=== PATIENT | female | born 1995 | race Caucasian/White ===

== ENCOUNTER 2019-03-28 01:40 | Day surgery (SDC) | payer BC, SELFPAY ==
[2019-03-20 15:26] VITALS: BMI 36.6
--- NOTE | 2019-03-27 15:40 | HP_ITS ---
DATE OF SERVICE: 03/28/2019 HISTORY: She has nasal obstruction and a CAT scan showed adenoid hypertrophy. PHYSICAL EXAMINATION: CHEST: Clear. HEART: Without murmurs. ABDOMEN: Soft. EXTREMITIES: Negative. REVIEW OF SYSTEMS: Otherwise unremarkable. IMPRESSION: Adenoid hypertrophy, adenoidectomy. D I MT: Archana
--- NOTE | 2019-03-27 17:16 | P.PNAN_ITS ---
Anes - Eval Pre Procedure Procedure: Operation Date: 03/28/19 09:00 Proposed Procedures p Adenoidectomy - Damaso Pugh MD Date/Time: 03/27/19 17:16 Pre Op Diagnosis: Adenoid Hypertrophy Patient Data Age: 23 Gender: F Height: 5 ft 5 in Weight: 99.79 kg Allergies Allergy/AdvReac Type Severity Reaction Status Date / Time No Known Allergies Allergy Unverified 07/18/16 09:31 Home Medications Medication Instructions Recorded Confirmed Type norethindrone-e.estradiol-iron [Lo 1 tablet PO DAILY 03/20/19 03/20/19 History Loestrin Fe] Patient hx anesthesia problems: none Family hx anesthesia problems: none PMFSH Past Medical History Medical History (Updated 03/27/19 @ 17:19 by Marcial Umana CRNA) Adenoid hypertrophy Anxiety Eczema Surgical History Surgical History (Updated 03/27/19 @ 17:19 by Marcial Umana CRNA) H/O abdominal surgery Status post myringotomy with tube placement of both ears [place] teeth extracted Exam Day of Procedure 03/27/19 17:16
[2019-03-28] VITALS (9 sets, daily range): BP systolic 102–124; BP diastolic 63–98; PULSE 70–110; RESP 14–26; TEMP 36.7–36.9; O2SAT 94–100
--- NOTE | 2019-03-28 05:28 | WPDHPUPDATE1 ---
History and Physical Update Update Date/Time: 03/28/19 05:28 History and Physical has been reviewed, including an updated exam of the patient. There are NO changes in the patient's condition. Risks, benefits, and alternatives have been discussed and questions answered. Patient agrees to proceed with procedure.
[2019-03-28] MEDS: LACTATED RINGERS 1,000 ML 30 ML IV CONT ×2 (07:40→09:31)
--- NOTE | 2019-03-28 07:47 | P.PNAN_ITS ---
Anes - Eval Final PreProcedure Day of Procedure 03/28/19 07:47 Patient weight: obese Heart: regular rate and rhythm Lungs: clear to auscultation Airway: Mallampati scale class III Neurological: alert and oriented Last oral intake: >/= 8 hours ASA classification: II Emergent: no Anesthetic plan: proceed Anesthesia type and monitoring: general ETT and standard monitoring Informed Consent: The patient's anesthetic plan and its attendant risks and be nefits were discussed with the patient/family/POA. Questions were solicited and answers provided to the satisfaction of the patient/family/POA.
[2019-03-28] MEDS: OXYMETAZOLINE HCL 0.05% NAS 15 ML BTL (*BKC) 1 SPRAY NASAL (08:41)
--- NOTE | 2019-03-28 08:49 | PM.PROC ---
Procedure Note - Detailed Date of procedure: 03/28/19 Pre-op diagnosis: Adenoid Hypertrophy Procedure performed: Patient was prepped and draped the fascial anesthesia the [place] mouth gag was inserted. Red rubber retraction of the palate laryngeal mirror showed adenoid tissue was difficult to visualize with an adenoid curette they were removed and by scraping the adenoids out present packed with cotton cotton balls impregnated with Afrin patient awakened returned to recovery in good condition Anesthesia: GLMA Surgeon: Damaso Pugh MD Estimated blood loss (mL): 150 Drains: No Packing: No Pathology: yes Complications: No immediate complications Condition: stable
--- NOTE | 2019-03-28 11:03 | SUR.PHASEII ---
1100: Discharge instructions given to patient and significant other. Patient is waiting for her dad to get here. She is all dressed and ready to go so RN has her disconnected from the monitors.
== END 2019-03-28 11:25 | disposition home or self-care (01) ==
PROVIDERS: PCP Nurse Practitioner; Visit Provider Otolaryngology
PROC: (CPT 42831; principal; 2019-03-28 09:00)
DX: J35.2 Hypertrophy of adenoids (principal); L30.9 Dermatitis, unspecified; F41.9 Anxiety disorder, unspecified
CPT/HCPCS: 42831; 88302; A9270; J0131; J0330; J1100; J2250; J2405; J2704; J3010; J7120

== ENCOUNTER 2022-01-19 10:17 | Emergency (ER) | payer BC, SELFPAY ==
--- NOTE | 2022-01-19 10:28 | ED.URI ---
HPI - URI/Sore Throat General Chief Complaint: Upper Respiratory Infection Stated Complaint: sorethroat,fever Time Seen by Provider: 01/19/22 10:28 Source: patient Mode of arrival: ambulatory Limitations: no limitations History of Present Illness HPI Narrative: Shy is a 26-year-old female patient presenting to the clinic today with complaints of sore throat, fever, body aches, and chills. She reports that she has had direct exposure to her sister who tested positive for influenza a last week. States that her symptoms have only been going on for approximately 2-3 days. MD elicited complaint: sore throat and nasal congestion Related Data Home Medications Medication Instructions Recorded Confirmed Mirena See Rx Instructions .Route .COMPLEX 01/19/22 01/19/22 Allergies Allergy/AdvReac Type Severity Reaction Status Date / Time No Known Allergies Allergy Verified 01/19/22 10:37 Review of Systems Review of Systems: Pertinent positives per HPI. Patient denies any rash, headache, visual changes, dizziness, cough, shortness of breath, chest pain, palpitations, nausea, vomiting, diarrhea, constipation, abdominal pain, or any urinary issues. [facility] Past Medical History Medical History Adenoid hypertrophy Anxiety Eczema Surgical History Surgical History H/O abdominal surgery Status post myringotomy with tube placement of both ears [place] teeth extracted Comments At the time of my signature, I reviewed and agree with the nursing past medical, surgical, social, and family history. There is no relevant family history pertinent to the patient complaint. Exam Narrative: General: Well-developed, well nourished, in no apparent distress Head: Normocephalic, atraumatic Eyes: Pupils equally round and reactive to light bilaterally, EOM intact, sclera and conjunctive clear, no discharge, lids normal Ears: TMs intact and clear, ear canals clear, no drainage, grossly hearing normal. Nose: Nares patent, clear nasal discharge, no inflammation, no sinus tenderness. Mouth: Oral pharynx without lesions or masses, good dentition, MMM. oropharynx red with mild tonsillar large Neck: Supple, trachea midline, no enlargement of anterior or posterior cervical nodes, no thyroid masses or goiter palpable. Cardio: Regular rate and rhythm, s1 and s2 normal, no murmur appreciated. Resp: Clear to auscultation bilaterally, no rhonchi, rales, wheezing or rubs Course Course Emergency Course: Portions of this record may have been created with voice recognition software. Level of Care: Express Care Visit Vital Signs Vital signs: Vital signs reviewed MDM - URI/Sore Throat MDM Narrative Medical decision making narrative: At the time of visit patient is resting comfortably on the exam table. Strep screen was obtained Differential Diagnosis Differential diagnosis: Likely upper respiratory infection, otitis media, sinusitis, viral infection, bronchitis, influenza, pharyngitis and other ( COVID) Discharge Plan Discharge Clinical Impression: Strep pharyngitis Patient Disposition: Home, Self-Care Condition: Stable Instructions: Antibiotic Form, Strep Throat (ED) Additional Instructions: Take prescription medications only as prescribed- amoxicillin May take DayQuil / NyQuil for flu-like symptoms Change toothbrush in 24 hours after initiation of antibiotic Increase fluids and stay well hydrated Tylenol/motrin for pain/fever Flonase and OTC antihistamines as directed Vicks vapor rub to open sinuses Sinus rinses for congestion Cepacol spray, cough drops, throat lozenges, warm tea with honey/lemon, gargle salt water to soothe throat BRAT diet for diarrhea Clear liquids x 24 hours then advance as tolerated for nausea/vomiting Go to the ED if you develop a worsening in your condition- high
[2022-01-19 10:31] VITALS: BP 116/77; PULSE 87; RESP 18; TEMP 36.9; O2SAT 99
== END 2022-01-19 10:49 | disposition home or self-care (01) ==
PROVIDERS: Emergency Provider Nurse Practitioner Family; PCP Nurse Practitioner
DX: J02.0 Streptococcal pharyngitis (principal)
CPT/HCPCS: 87880; 99213; G0463